=== PATIENT | female | born 1950 | race Caucasian/White ===

== ENCOUNTER 2016-05-22 08:19 | Outpatient (CLI) | payer MEDICARE, OTHER | END 2016-05-22 23:59 | LOC: LAB.WCP 08:19 | PROVIDERS: ATTEND Physician Assistant Medical | DX: E11.9 Type 2 diabetes mellitus without complications (principal) | CPT/HCPCS: 36415; 80053; 80061; 83036 ==

== ENCOUNTER 2016-07-29 08:24 | Outpatient (CLI) | payer MEDICARE, OTHER | END 2016-07-29 08:25 | disposition home or self-care (01) | LOC: LAB.R 08:24 | PROVIDERS: ATTEND Family Medicine | DX: N39.0 Urinary tract infection, site not specified (principal) | CPT/HCPCS: 87077; 87086 ==

== ENCOUNTER 2016-11-14 08:54 | Outpatient (CLI) | payer MEDICARE, OTHER ==
--- NOTE | 2016-11-14 11:52 | CT Report ---
CT CHEST FOR LUNG CANCER SCREENIN11/14/2016 CLINICAL INDICATION: A 66-year-old with 60-pack year history of smoking, current smoker, for lung ca ncer screening. TECHNIQUE: Axial CT images of the chest were obtained without intravenous contrast, using low-dose s creening technique. No previous CT is available for comparison. FINDINGS: The heart and great vessels demonstrate atherosclerotic calcification. Extensive coronary calcifications are present. No hilar or mediastinal lymphadenopathy is present. The lungs demonstr ate mild emphysema. No pulmonary nodule or mass lesion is seen. No effusion or pneumothorax is pres ent. Osseous structures demonstrate degenerative changes. Limited evaluation of upper abdominal str uctures demonstrates normal adrenal glands. IMPRESSION: EMPHYSEMA. EXTENSIVE CORONARY ARTERY CALCIFICATIONS. NO SUSPICIOUS PULMONARY NODULE OR MASS LESION. RECOMMENDATION: Continue annual screening with low-dose chest CT in 12 months. Lung-RADS category 1, negative. In accordance with CT protocol optimization, one or more of the following dose reduction techniques w ere utilized for this exam: automated exposure control, adjustment of mA and/or KV based on patient size, or use of iterative reconstructive technique. JOB #: [id number] EXT JOB #:[id number]
== END 2016-11-14 08:55 | disposition home or self-care (01) ==
LOC: DI 08:54
PROVIDERS: ATTEND Physician Assistant Medical
DX: Z12.2 Encounter for screening for malignant neoplasm of respiratory organs (principal); F17.210 Nicotine dependence, cigarettes, uncomplicated; J43.9 Emphysema, unspecified

== ENCOUNTER → 2016-11-29 | Outpatient (CLI) | payer MEDICARE, OTHER | LOC: LAB.R 17:20 | PROVIDERS: ATTEND Physician Assistant Medical | DX: L03.011 Cellulitis of right finger (principal) | CPT/HCPCS: 87070; 87205 ==

== ENCOUNTER 2016-12-05 16:58 | Outpatient (CLI) | payer MEDICARE, OTHER | END 2016-12-05 16:59 | disposition home or self-care (01) | LOC: LAB.R 16:58 | PROVIDERS: ATTEND Physician Assistant Medical | DX: L03.011 Cellulitis of right finger (principal) | CPT/HCPCS: 87640 ==

== ENCOUNTER 2017-03-20 14:35 | Outpatient (CLI) | payer MEDICARE, OTHER ==
[2017-03-20 19:15] LABS: CALCIUM 9.2 mg/dL (8.5-10.3); CREATININE 0.6 mg/dL (0.4-1.0)
[2017-03-20 20:02] LABS: HB2 TOTAL 17.1 g/dL; HEMOGLOBIN A1C 0.87 g/dL; HEMOGLOBIN A1C % 6.8 % (4.6-6.2)
== END 2017-03-20 14:36 ==
LOC: LAB.WCP 14:35
PROVIDERS: ATTEND Physician Assistant Medical
DX: E11.9 Type 2 diabetes mellitus without complications (principal)
CPT/HCPCS: 36415; 80048; 82043; 83036

== ENCOUNTER 2017-04-01 14:32 | Outpatient (CLI) | payer MEDICARE, OTHER | END 2017-04-01 14:33 | LOC: LAB.WCP 14:32 | PROVIDERS: ATTEND Physician Assistant Medical | DX: E11.9 Type 2 diabetes mellitus without complications (principal) | CPT/HCPCS: 82043 ==

== ENCOUNTER 2017-07-24 08:00 | Outpatient (CLI) | payer MEDICARE, OTHER ==
[2017-07-24 19:30] LABS: ALBUMIN 4.2 g/dL (3.2-5.5); ALBUMIN/GLOBULIN RATIO 1.6 (1.0-2.2); ALKALINE PHOSPHATASE 42 IU/L (42-121); ALT ALANINE AMINOTRANSFERASE 35 IU/L (10-60); AST ASPARTATE AMINOTRANSFERASE 29 IU/L (10-42); BILIRUBIN,TOTAL 0.5 mg/dL (0.2-1.0); BUN - BLOOD UREA NITROGEN 13 mg/dL (6-20); CALCIUM 9.4 mg/dL (8.5-10.3); CARBON DIOXIDE - CO2 26 mmol/L (21-32); CHLORIDE 102 mmol/L (101-111); CHOL/HDL RATIO 4.3 (<4.4); CHOLESTEROL 142 mg/dL; CREATININE 0.6 mg/dL (0.4-1.0); GFR - MDRD 99 (>89); GLUCOSE 210 mg/dL (70-100); HDL CHOLESTEROL 33 mg/dL; SODIUM 137 mmol/L (135-145); TOTAL PROTEIN 6.8 g/dL (6.7-8.2)
[2017-07-24 20:23] LABS: HB2 TOTAL 18.5 g/dL; HEMOGLOBIN A1C 0.99 g/dL; LDL CHOLESTEROL,DIRECT 63 mg/dL; LDLD/HDL RATIO 1.9 (<4.4)
== END 2017-07-24 08:01 ==
LOC: LAB.WCP 08:00
PROVIDERS: ATTEND Physician Assistant Medical
DX: E11.9 Type 2 diabetes mellitus without complications (principal)
CPT/HCPCS: 36415; 80053; 80061; 83036; 83721

== ENCOUNTER 2017-10-29 14:45 | Outpatient (CLI) | payer MEDICARE, OTHER ==
[2017-10-29 19:03] LABS: HEMOGLOBIN A1C 1.03 g/dL; HEMOGLOBIN A1C % 7.4 % (4.6-6.2)
[2017-10-29 19:06] LABS: CALCIUM 9.3 mg/dL (8.5-10.3); CREATININE 0.6 mg/dL (0.4-1.0)
== END 2017-10-29 14:46 ==
LOC: LAB.WCP 14:45
PROVIDERS: ATTEND Physician Assistant Medical
DX: E11.9 Type 2 diabetes mellitus without complications (principal); R25.1 Tremor, unspecified
CPT/HCPCS: 36415; 80048; 82607; 83036

== ENCOUNTER 2018-04-16 08:00 | Outpatient (CLI) | payer MEDICARE, OTHER ==
[2018-04-16 19:09] LABS: ALBUMIN 4.2 g/dL (3.2-5.5); ALBUMIN/GLOBULIN RATIO 1.8 (1.0-2.2); ALKALINE PHOSPHATASE 45 IU/L (42-121); ALT ALANINE AMINOTRANSFERASE 22 IU/L (10-60); AST ASPARTATE AMINOTRANSFERASE 20 IU/L (10-42); BILIRUBIN,TOTAL 0.7 mg/dL (0.2-1.0); BUN - BLOOD UREA NITROGEN 14 mg/dL (6-20); CALCIUM 9.6 mg/dL (8.5-10.3); CARBON DIOXIDE - CO2 25 mmol/L (21-32); CHLORIDE 105 mmol/L (101-111); CHOL/HDL RATIO 4.4 (<4.4); CHOLESTEROL 153 mg/dL; CREATININE 0.4 mg/dL (0.4-1.0); GFR - MDRD 158 (>89); GLUCOSE 192 mg/dL (70-100); HDL CHOLESTEROL 35 mg/dL; LDL CHOLESTEROL,CALCULATED 47 mg/dL; LDL/HDL RATIO 1.3 (<4.4); SODIUM 139 mmol/L (135-145); TOTAL PROTEIN 6.6 g/dL (6.7-8.2); VLDL CHOLESTEROL 71 mg/dL
[2018-04-16 19:55] LABS: HB2 TOTAL 18.9 g/dL; HEMOGLOBIN A1C 0.92 g/dL; HEMOGLOBIN A1C % 6.6 % (4.6-6.2)
== END 2018-04-16 23:59 | disposition home or self-care (01) ==
LOC: LAB.WCP 08:00
PROVIDERS: ATTEND Physician Assistant Medical
DX: E11.9 Type 2 diabetes mellitus without complications (principal)
CPT/HCPCS: 36415; 80053; 80061; 83036; 83721

== ENCOUNTER 2018-06-25 14:36 | Outpatient (CLI) | payer MEDICARE, OTHER ==
--- NOTE | 2018-06-30 15:26 | Mammography Report ---
Reason: SCREENING MAMMO Procedure Date: 06/25/2018 Accession Number: [id number] / [id number] Procedure: MGN - Screening Mammo Dig Bilat CPT Code: FULL RESULT: EXAM: Screening Mammo Dig Bilat DATE: 06/25/2018 3:05 PM CLINICAL HISTORY: Screening examination. TECHNIQUE: (B) - Bilateral CC and MLO views were obtained. COMPARISON: None PARENCHYMAL PATTERN: (A) - The breasts demonstrate scattered fibroglandular densities bilaterally. FINDINGS: Scattered benign punctate microcalcifications. There are no suspicious masses, pleomorphic calcifications, or areas of distortion. IMPRESSION: Negative examination. BI-RADS category 1. RECOMMENDATION: (ANNUAL) - Recommend routine annual screening mammography. BI-RADS CATEGORY: (1) - Negative. STANDARD QUALIFYING STATEMENTS: 1. This examination was reviewed with the aid of Computer-Aided Detection (CAD). 2. A negative or benign imaging report should not preclude biopsy if clinically suspicious findings are present. 3. Dense breasts may obscure an underlying neoplasm. 4. This examination was not reviewed with the aid of 3D breast imaging (tomosynthesis).
== END 2018-06-25 14:37 | disposition home or self-care (01) ==
LOC: DI.N 14:36
DX: Z12.31 Encounter for screening mammogram for malignant neoplasm of breast (principal)
CPT/HCPCS: 77067

== ENCOUNTER 2018-07-20 14:50 | Outpatient (CLI) | payer MEDICARE, OTHER ==
--- NOTE | 2018-07-20 15:36 | XRAY Report ---
Reason: TROCHANTERIC BURSITIS,RIGHT Procedure Date: 07/20/2018 Accession Number: [id number] / [id number] Procedure: WCP - Hip w/Pelvis 2-3V RT CPT Code: FULL RESULT: EXAM: RIGHT HIP RADIOGRAPHY EXAM DATE: 07/20/2018 03:03 PM. CLINICAL HISTORY: Chronic pain. No known injury. COMPARISON: 11/04/2013 2:46 PM. TECHNIQUE: 2 views. FINDINGS: Bones: Normal. No fractures or bone lesion. Joints: Relatively symmetric joint space narrowing of both hip joints. No subluxation of the right hip. Soft Tissues: Vascular calcifications are noted. 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 RADIA
== END 2018-07-20 14:51 | disposition home or self-care (01) ==
LOC: DI.WCP 14:50
PROVIDERS: ATTEND Physician Assistant Medical
DX: M16.11 Unilateral primary osteoarthritis, right hip (principal)

== ENCOUNTER 2018-10-12 14:07 | Outpatient (CLI) | payer MEDICARE, OTHER ==
[2018-10-12 18:42] LABS: CALCIUM 9.3 mg/dL (8.5-10.3); CREATININE 0.5 mg/dL (0.4-1.0); HB2 TOTAL 17.5 g/dL; HEMOGLOBIN A1C 1.08 g/dL; HEMOGLOBIN A1C % 7.8 % (4.6-6.2)
== END 2018-10-12 14:08 | disposition home or self-care (01) ==
LOC: LAB.WCP 14:07
PROVIDERS: ATTEND Physician Assistant Medical
DX: E11.9 Type 2 diabetes mellitus without complications (principal)
CPT/HCPCS: 36415; 80048; 83036

== ENCOUNTER 2018-10-19 14:17 | Outpatient (CLI) | payer MEDICARE, OTHER ==
--- NOTE | 2018-10-20 09:37 | Ultrasound Report ---
Reason: LEG PAIN, LEFT Procedure Date: 10/19/2018 Accession Number: [id number] / [id number] Procedure: US - Duplex Ext Veins Left CPT Code: FULL RESULT: EXAM: LEFT LOWER EXTREMITY VENOUS ULTRASOUND EXAM DATE: 10/19/2018 03:32 PM. CLINICAL HISTORY: LEG PAIN, LEFT. COMPARISON: None. TECHNIQUE: Real-time sonographic vascular imaging was performed by the membership administrator through the lower extremity utilizing both color-flow and Doppler spectral analysis. Multiple circulation representative static images were saved for review. FINDINGS: Common Femoral Vein (CFV): Normal. CFV-GSV Junction: Normal. Profunda Femoral Vein (PFV): Normal. Femoral Vein (FV) Prox: Normal. Femoral Vein (FV) Mid: Normal. Femoral Vein (FV) Dist: Normal. Popliteal Vein: Normal. Posterior Tibial Veins: Suboptimal visualization, no filling defect seen. Peroneal Veins: Suboptimal visualization, no filling defect seen. Other: None. IMPRESSION: No evidence for deep venous thrombosis. RADIA
== END 2018-10-19 14:18 | disposition home or self-care (01) ==
LOC: DI 14:17
PROVIDERS: ATTEND Physician Assistant Medical
DX: M79.605 Pain in left leg (principal)

== ENCOUNTER 2018-10-28 15:04 | Outpatient (CLI) | payer MEDICARE, OTHER ==
--- NOTE | 2018-10-30 10:17 | Ultrasound Report ---
Reason: NECK PAIN, CHRONIC, DYSLIPIDEMIA, HTN Procedure Date: 10/28/2018 Accession Number: [id number] / [id number] Procedure: US - Carotid Doppler Complete CPT Code: FULL RESULT: EXAM: BILATERAL CAROTID AND VERTEBRAL ARTERY DUPLEX DOPPLER ULTRASOUND: EXAM DATE: 10/28/2018 04:11 PM CLINICAL HISTORY: Neck pain, chronic, dyslipidemia, hypertension. COMPARISON: 10/28/2018 4:13 PM. TECHNIQUE: Grayscale imaging, color Doppler, and duplex spectral Doppler were used to evaluate the carotid and vertebral arteries bilaterally. Static images were obtained. FINDINGS: Mild atheromatous plaques are present in the right carotid bulb extending into the internal carotid artery. However, no hemodynamically significant stenoses are noted. Mild atheromatous plaques are present in the left carotid bulb extending into the internal carotid artery. However, no hemodynamically significant stenoses are noted. Visualized portions of the neck soft tissues are grossly unremarkable. Normal antegrade flow is present in bilateral vertebral arteries. VELOCITIES (cm/sec): Right CCA mid: PSV 75 cm/sec CCA dist: PSV 72 cm/sec ICA prox: PSV 115 cm/sec, EDV 31 cm/sec ICA mid: PSV 107 cm/sec, EDV 32 cm/sec ICA dist: PSV 71 cm/sec, EDV 18 cm/sec ECA: PSV 188 cm/sec Vert: PSV 41 cm/sec ICA/CCA: 1.5 Left CCA mid: PSV 72 cm/sec CCA dist: PSV 81 cm/sec ICA prox: PSV 109 cm/sec, EDV 25 cm/sec ICA mid: PSV 89 cm/sec, EDV 27 cm/sec ICA dist: PSV 81 cm/sec, EDV 23 cm/sec ECA: PSV 356 cm/sec Vert: PSV 67 cm/sec ICA/CCA: 1.3 ICA diameter stenosis: Right: <50% by velocity and <70% by NASCET criteria. Left: <50% by velocity and <70% by NASCET criteria. IMPRESSION: 1. Mild bilateral carotid artery plaquing. 2. In the right carotid artery there are no elevated carotid artery velocities to suggest hemodynamically significant stenosis. 3. In the left carotid artery there are no elevated carotid artery velocities to suggest hemodynamically significant stenosis. 4. Normal antegrade flow is present in bilateral vertebral arteries. General Recommendations: Stenosis =50% ICA - Follow-up ultrasound 6-12 months Stenosis <50% ICA - High Risk Patient with plaque - Follow-up ultrasound 1-2 years Normal Study but High Risk Patient - Follow-up ultrasound 3-5 years Management recommendations and diagnostic criteria are based on current IAC endorsed standards in Carotid Artery Stenosis: Grayscale and Doppler Ultrasound Diagnosis. Validated velocity measurements with angiographic measurements and velocity criteria are extrapolated from diameter data as defined by the Society of Radiologists in Ultrasound Consensus Conference Radiology 2003; 229;340-346. RADIA
== END 2018-10-28 15:05 | disposition home or self-care (01) ==
LOC: DI 15:04
PROVIDERS: ATTEND Physician Assistant Medical
DX: M54.2 Cervicalgia (principal); E78.5 Hyperlipidemia, unspecified; I10 Essential (primary) hypertension
CPT/HCPCS: 93880

== ENCOUNTER 2019-01-10 14:27 | Outpatient (CLI) | payer MEDICARE, OTHER ==
--- NOTE | 2019-01-11 14:39 | Ultrasound Report ---
Reason: MENORRHAGIA POSTMENOPAUSAL Procedure Date: 01/10/2019 Accession Number: [id number] / [id number] Procedure: US - Pelvic w/Transvaginal CPT Code: FULL RESULT: EXAM: PELVIC ULTRASOUND EXAM DATE: 01/10/2019 03:25 PM. CLINICAL HISTORY: MENORRHAGIA POSTMENOPAUSAL. COMPARISON: 10/28/2018 4:13 PM. TECHNIQUE: Realtime transabdominal pelvic scan performed to identify the uterus and adnexa and as an overview of other pelvic structures, followed by transvaginal scan to provide greater detail of the uterus and adnexa, with static image documentation. FINDINGS: Uterus: 6.7 x 2.3 x 3.5 cm, volume 28 cc. Anteverted position. Normal overall size and echotexture. Masses: 5 x 5 x 8 mm echogenic intramural focus, possibly a hyperechoic fibroid. Endometrium: 2 mm. Normal. Cervix: Unremarkable. Right Ovary: Not seen. No adnexal masses. Left Ovary: 1.9 x 1.3 x 2 cm, volume 2.5 cc. Normal echotexture and blood flow. Free Fluid: None. Other: None. IMPRESSION: Normal endometrial echo thickness in a postmenopausal female. Possible sub-centimeter echogenic intramural fibroid.Otherwise negative pelvic ultrasound. RADIA
== END 2019-01-10 14:28 | disposition home or self-care (01) ==
LOC: DI 14:27
PROVIDERS: ATTEND Physician Assistant Medical
DX: N95.0 Postmenopausal bleeding (principal)
CPT/HCPCS: 76830; 76856

== ENCOUNTER 2019-01-25 07:00 | Outpatient (CLI) | payer MEDICARE, OTHER ==
[2019-01-25 18:37] LABS: ALBUMIN 4.5 g/dL (3.2-5.5); ALBUMIN/GLOBULIN RATIO 1.6 (1.0-2.2); ALKALINE PHOSPHATASE 42 IU/L (42-121); ALT ALANINE AMINOTRANSFERASE 25 IU/L (10-60); AST ASPARTATE AMINOTRANSFERASE 23 IU/L (10-42); BILIRUBIN,TOTAL 0.5 mg/dL (0.2-1.0); BUN - BLOOD UREA NITROGEN 17 mg/dL (6-20); CALCIUM 9.3 mg/dL (8.5-10.3); CARBON DIOXIDE - CO2 26 mmol/L (21-32); CHLORIDE 101 mmol/L (101-111); CHOL/HDL RATIO 4.4 (<4.4); CHOLESTEROL 155 mg/dL; CREATININE 0.5 mg/dL (0.4-1.0); GFR - MDRD 122 (>89); GLUCOSE 194 mg/dL (70-100); HDL CHOLESTEROL 35 mg/dL; LDL CHOLESTEROL,CALCULATED 54 mg/dL; LDL/HDL RATIO 1.5 (<4.4); SODIUM 139 mmol/L (135-145); TOTAL PROTEIN 7.3 g/dL (6.7-8.2); VLDL CHOLESTEROL 66 mg/dL
[2019-01-25 18:44] LABS: HB2 TOTAL 16.6 g/dL; HEMOGLOBIN A1C 0.95 g/dL; HEMOGLOBIN A1C % 7.4 % (4.6-6.2)
== END 2019-01-25 23:59 | disposition home or self-care (01) ==
LOC: LAB.WCP 07:00
PROVIDERS: ATTEND Physician Assistant Medical
DX: E11.9 Type 2 diabetes mellitus without complications (principal)
CPT/HCPCS: 36415; 80053; 80061; 83036; 83721

== ENCOUNTER 2019-02-01 13:45 | Outpatient (CLI) | payer MEDICARE, OTHER ==
[2019-02-01 14:18] LABS: BASOPHILS # (AUTO) 0.1 10^3/uL (0.0-0.1); BASOPHILS % (AUTO) 0.8 %; EOSINOPHILS # (AUTO) 0.2 10^3/uL (0.0-0.7); EOSINOPHILS % (AUTO) 1.8 %; LYMPHOCYTES # (AUTO) 2.9 10^3/uL (1.5-3.5); LYMPHOCYTES % (AUTO) 34.8 %; MEAN CORPUSCULAR HEMOGLOBIN 32.1 pg (27.0-31.0); MEAN CORPUSCULAR HGB CONC 33.7 g/dL (32.0-36.0); MEAN CORPUSCULAR VOLUME 95.4 fL (81.0-99.0); MEAN PLATELET VOLUME 10.1 fL (7.9-10.8); MONOCYTES # (AUTO) 0.8 10^3/uL (0.0-1.0); MONOCYTES % (AUTO) 9.1 %; NEUTROPHILS # (AUTO) 4.5 10^3/uL (1.5-6.6); NEUTROPHILS % (AUTO) 53.1 %; PLT - PLATELET COUNT 160 10^3/uL (130-450); RED CELL DISTRIBUTION WIDTH 14.3 % (12.0-15.0); WHITE BLOOD COUNT 8.4 x10^3/uL (4.8-10.8)
[2019-02-01 14:32] LABS: ALBUMIN 4.6 g/dL (3.2-5.5); ALBUMIN/GLOBULIN RATIO 1.4 (1.0-2.2); BILIRUBIN,TOTAL 0.7 mg/dL (0.2-1.0); CALCIUM 9.6 mg/dL (8.5-10.3); CREATININE 0.6 mg/dL (0.4-1.0); TOTAL PROTEIN 7.8 g/dL (6.7-8.2)
== END 2019-02-01 13:46 | disposition home or self-care (01) ==
LOC: LAB 13:45
PROVIDERS: ATTEND Obstetrics & Gynecology
DX: Z01.818 Encounter for other preprocedural examination (principal); N95.0 Postmenopausal bleeding; E11.8 Type 2 diabetes mellitus with unspecified complications
CPT/HCPCS: 36415; 80053; 85025; 93005

== ENCOUNTER 2019-04-21 14:48 | Outpatient (CLI) | payer MEDICARE, OTHER ==
[2019-04-21 19:37] LABS: HB2 TOTAL 17.3 g/dL; HEMOGLOBIN A1C % 7.4 % (4.6-6.2)
[2019-04-21 19:46] LABS: CALCIUM 9.3 mg/dL (8.5-10.3); CREATININE 0.6 mg/dL (0.4-1.0)
== END 2019-04-21 23:59 | disposition home or self-care (01) ==
LOC: LAB.WCP 14:48
PROVIDERS: ATTEND Physician Assistant Medical
DX: E11.9 Type 2 diabetes mellitus without complications (principal)
CPT/HCPCS: 36415; 80048; 83036

== ENCOUNTER 2019-05-24 13:54 | Outpatient (CLI) | payer MEDICARE, OTHER ==
--- NOTE | 2019-05-26 11:38 | CT Report ---
Reason: TOBACCO USER Procedure Date: 05/24/2019 Accession Number: [id number] / [id number] Procedure: CT - Low Dose Lung Cancer Screen CPT Code: Final Report FULL RESULT: EXAM CT LUNG SCREEN EXAM DATE: 05/24/2019 02:07 PM. HISTORY: 68-year-old patient with greater than 34-[id number]-tgid smoking history. Currently smoking: Yes. COMPARISON: CHEST SCREEN LOW DOSE W/O 11/14/2016 9:24 AM. TECHNIQUE: CT examination of the entire thorax without contrast was performed using low-dose technique. Thin section coronal, axial, sagittal and MIP axial images were obtained. In accordance with CT protocol optimization, one or more of the following dose reduction techniques were utilized for this exam: automated exposure control, adjustment of mA and/or KV based on patient size, or use of iterative reconstructive technique. FINDINGS: Nodules: Right upper lobe: None. Right middle lobe: 3 mm nodule image 74 series 4, stable. 3 mm nodule on image 75, stable. Right lower lobe: Sub-2 mm nodule image 86 stable,. Left upper lobe: Sub-2 mm nodularity on image 47, stable. Left lower lobe: None. Emphysema: Minimal. Pleura: Unremarkable. Aorta: Moderately atherosclerotic. Mediastinum: Unremarkable. Coronary calcifications: Moderate three-vessel. Other pulmonary findings: None. Other extrapulmonary findings: None. IMPRESSION: Lung-RADS ASSESSMENT CATEGORY: 2 - benign appearance or behavior. Probability of malignancy: Less than 1%. RECOMMENDATION: Continue annual low-dose chest CT screening. RADIA
== END 2019-05-24 13:55 | disposition home or self-care (01) ==
LOC: DI 13:54
PROVIDERS: ATTEND Physician Assistant Medical
DX: Z12.2 Encounter for screening for malignant neoplasm of respiratory organs (principal); F17.210 Nicotine dependence, cigarettes, uncomplicated

== ENCOUNTER 2019-08-20 08:00 | Outpatient (CLI) | payer MEDICARE, OTHER ==
[2019-08-20 18:48] LABS: HEMOGLOBIN A1C 1.15 g/dL
[2019-08-20 19:09] LABS: ALBUMIN 4.3 g/dL (3.2-5.5); ALBUMIN/GLOBULIN RATIO 1.5 (1.0-2.2); ALKALINE PHOSPHATASE 46 IU/L (42-121); ALT ALANINE AMINOTRANSFERASE 31 IU/L (10-60); AST ASPARTATE AMINOTRANSFERASE 20 IU/L (10-42); BILIRUBIN,TOTAL 0.8 mg/dL (0.2-1.0); BUN - BLOOD UREA NITROGEN 20 mg/dL (6-20); CALCIUM 9.4 mg/dL (8.5-10.3); CARBON DIOXIDE - CO2 26 mmol/L (21-32); CHLORIDE 100 mmol/L (101-111); CHOL/HDL RATIO 5.8 (<4.4); CHOLESTEROL 190 mg/dL; CREATININE 0.6 mg/dL (0.4-1.0); GLUCOSE 209 mg/dL (70-100); HDL CHOLESTEROL 33 mg/dL; SODIUM 139 mmol/L (135-145); TOTAL PROTEIN 7.1 g/dL (6.7-8.2)
[2019-08-20 19:32] LABS: LDL CHOLESTEROL,DIRECT 76 mg/dL; LDLD/HDL RATIO 2.3 (<4.4)
[2019-08-20 20:01] LABS: HB2 TOTAL 17.9 g/dL
== END 2019-08-20 08:01 | disposition home or self-care (01) ==
LOC: LAB.WCP 08:00
PROVIDERS: ATTEND Physician Assistant Medical
DX: E11.9 Type 2 diabetes mellitus without complications (principal)
CPT/HCPCS: 36415; 80053; 80061; 83036; 83721

== ENCOUNTER 2019-10-29 13:52 | Outpatient (CLI) | payer MEDICARE, OTHER ==
--- NOTE | 2019-11-01 11:41 | Ultrasound Report ---
LIMITED ULTRASOUND OF RIGHT BREAST: 10/29/2019 CLINICAL: Palpable right breast lump. Comparison is made to exams dated: 10/29/2019 mammogram, 06/25/2018 mammogram, and 05/09/2014 mammogram - . Color flow and real-time ultrasound of the right breast upper outer quadrant were performed. Bain sc cali images of the real-time examination were reviewed. No significant abnormalities were seen sonographically in the right breast in the region of suspected palpable abnormality. IMPRESSION: NEGATIVE There is no sonographic evidence of malignancy. A 1 year screening mammogram is recommended. Exam findings conveyed to the patient. Patient is advised to monitor for significant change. This exam was interpreted at Station ID: [id number]. Electronically Signed By: Manoj Pace M.D. slc/:10/29/2019 15:56:05 Ultrasound BI-RADS: 1 Negative BI-RADS CATEGORY: (1) - 1 RECOMMENDATION: (ANNUAL) - Recommend routine annual screening mammography. [id number] 1 year screening LATERALITY: (B)
--- NOTE | 2019-11-01 11:41 | Mammography Report ---
BILATERAL DIGITAL DIAGNOSTIC MAMMOGRAM 3D/2D: 10/29/2019 CLINICAL: Palpable right breast lump. 12 O'Clock. Comparison is made to exams dated: 06/25/2018 mammogram and 05/09/2014 mammogram - [facility]. The tissue of both breasts is predominantly fatty. No significant masses, calcifications, or other findings are seen in either breast. IMPRESSION: INCOMPLETE: NEEDS ADDITIONAL IMAGING EVALUATION No mammographic evidence of malignancy. A targeted ultrasound of the suspected palpable abnormality in the right breast is recommended and wi ll immediately follow. This exam was interpreted at Station ID: [id number]. NOTE: For mammograms, a report in lay terms will be sent to the patient. Approximately 15% of breast malignancies will not be visualized mammographically. In the management of a palpable breast mass, a negative mammogram must not discourage biopsy of a clinically suspicious lesion. Electronically Signed By: Manoj Pace M.D. slc/:10/29/2019 15:54:08 ACR BI-RADS Category 0: Incomplete 3340F PARENCHYMAL PATTERN: (F) - The breast(s) demonstrate(s) diffuse fatty replacement. BI-RADS CATEGORY: (0) - 0 Ultrasound [id number] Immediate follow-up LATERALITY: (B)
== END 2019-10-29 13:53 | disposition home or self-care (01) ==
LOC: DI 13:52
PROVIDERS: ATTEND Physician Assistant Medical
DX: N63.11 Unspecified lump in the right breast, upper outer quadrant (principal)
CPT/HCPCS: 76642; 77066

== ENCOUNTER 2019-10-29 13:54 | Outpatient (CLI) | payer MEDICARE, OTHER ==
--- NOTE | 2019-10-30 06:31 | DEXA Report ---
PROCEDURE: Dexa Spine and/or Hip INDICATIONS: POSTMENOPAUSAL TECHNIQUE: Dual energy x-ray absorptiometry (DXA) was performed on a [employer] System. Regions measur ed are the AP Spine, femoral neck, and if needed forearm. COMPARISON: None. FINDINGS: Lumbar Spine: Bone Mineral Density 1.037 g/cm/cm,T score -1.1, borderline osteopenia Left Hip: Bone Mineral Density 0.895 g/cm/cm,T score -0.9, normal Left Femoral Neck: Bone Mineral Density 0.822 g/cm/cm, T score -1.6, moderate osteopenia. (T score greater or equal to -1.0: NORMAL) (T score from -1.1 to -2.4: OSTEOPENIA) (T score less than or equal to -2.5 to: OSTEOPOROSIS) Impression: Moderate osteopenia of the left femoral neck. Patients with diagnosis of osteoporosis or osteopenia should have regular bone mineral density assess ment. For those eligible for Medicare, routine testing is allowed once every 2 years. Testing frequ ency can be increased for patients who have rapidly progressing disease or for those who are receivin g medical therapy to restore bone mass. Reviewed by: Maribel Ibarra MD on 10/29/2019 5:09 PM PDT Approved by: Maribel Iabrra MD on 10/29/2019 5:09 PM PDT Station ID: [id number]
== END 2019-10-29 13:55 | disposition home or self-care (01) ==
LOC: DI 13:54
PROVIDERS: ATTEND Physician Assistant Medical
DX: M85.89 Other specified disorders of bone density and structure, multiple sites (principal); Z78.0 Asymptomatic menopausal state
CPT/HCPCS: 77080

== ENCOUNTER 2019-12-15 08:00 | Outpatient (CLI) | payer MEDICARE, OTHER ==
[2019-12-15 19:02] LABS: ALBUMIN 4.4 g/dL (3.2-5.5); ALBUMIN/GLOBULIN RATIO 1.8 (1.0-2.2); ALKALINE PHOSPHATASE 55 IU/L (42-121); ALT ALANINE AMINOTRANSFERASE 23 IU/L (10-60); AST ASPARTATE AMINOTRANSFERASE 17 IU/L (10-42); BILIRUBIN,TOTAL 0.5 mg/dL (0.2-1.0); BUN - BLOOD UREA NITROGEN 19 mg/dL (6-20); CALCIUM 9.3 mg/dL (8.5-10.3); CARBON DIOXIDE - CO2 24 mmol/L (21-32); CHLORIDE 104 mmol/L (101-111); CHOL/HDL RATIO 5.2 (<4.4); CHOLESTEROL 197 mg/dL; CREATININE 0.6 mg/dL (0.4-1.0); GLUCOSE 216 mg/dL (70-100); HDL CHOLESTEROL 38 mg/dL; SODIUM 138 mmol/L (135-145); TOTAL PROTEIN 6.9 g/dL (6.7-8.2)
[2019-12-15 19:21] LABS: LDL CHOLESTEROL,DIRECT 101 mg/dL; LDLD/HDL RATIO 2.7 (<4.4)
[2019-12-15 20:05] LABS: HEMOGLOBIN A1c% 8.1 % (4.27-6.07)
== END 2019-12-15 23:59 | disposition home or self-care (01) ==
LOC: LAB.WCP 08:00
PROVIDERS: ATTEND Physician Assistant Medical
DX: E11.9 Type 2 diabetes mellitus without complications (principal)
CPT/HCPCS: 36415; 80053; 80061; 83036; 83721

== ENCOUNTER 2020-04-19 14:50 | Outpatient (CLI) | payer MEDICARE, OTHER ==
--- NOTE | 2020-04-19 17:04 | XRAY Report ---
PROCEDURE: Knee 3 View LT INDICATIONS: L LEG PX TECHNIQUE: 3 views of the left knee(s) were acquired. COMPARISON: None. FINDINGS: Bones: No fractures or dislocations. No suspicious bony lesions. Mild tricompartmental periareolar articular osteophyte formation. Soft tissues: No joint effusion. No suspicious soft tissue calcifications. IMPRESSION: Osteoarthritis. No acute fracture. No osseous lesion. If symptoms and/or clinical suspic ion for pathology continue, further assessment with repeat plain films, or advanced imaging (e.g., CT , MRI, or bone scan) is recommended for further assessment. Reviewed by: Abhilash Dejesus MD on 04/19/2020 5:03 PM PST Approved by: Abhilash Dejesus MD on 04/19/2020 5:03 PM PST Station ID: [id number]
--- NOTE | 2020-04-19 17:31 | XRAY Report ---
PROCEDURE: Thoracic Spine 3 View INDICATIONS: THORACIC BACK PX TECHNIQUE: 3 views of the thoracic spine were acquired. COMPARISON: None. FINDINGS: Bones: No fractures or dislocations. Degenerative endplate changes throughout mid to lower thoracic spine is seen. Moderate rightward scoliosis of visualized portion of lumbar spine is noted. No suspi cious bony lesions. 12 pairs of ribs are noted, and appear intact where visualized. Soft tissues: No paravertebral stripe thickening. 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 No acute compression fracture or sp ondylolisthesis. Scoliosis as above. No suspicious bony lesion. Reviewed by: Peng Reynolds MD on 04/19/2020 4:30 PM [facility] Approved by: Peng Reynolds MD on 04/19/2020 4:30 PM [facility] Station ID: [id number]
== END 2020-04-19 14:51 | disposition home or self-care (01) ==
LOC: DI.N 14:50
PROVIDERS: ATTEND Physician Assistant Medical
DX: M51.34 Other intervertebral disc degeneration, thoracic region (principal); M41.84 Other forms of scoliosis, thoracic region; M17.12 Unilateral primary osteoarthritis, left knee

== ENCOUNTER 2020-05-02 13:52 | Outpatient (CLI) | payer MEDICARE, OTHER ==
[2020-05-02 19:16] LABS: ALBUMIN 4.3 g/dL (3.2-5.5); ALBUMIN/GLOBULIN RATIO 1.5 (1.0-2.2); ALKALINE PHOSPHATASE 52 IU/L (42-121); ALT ALANINE AMINOTRANSFERASE 21 IU/L (10-60); AST ASPARTATE AMINOTRANSFERASE 14 IU/L (10-42); BILIRUBIN,TOTAL 0.9 mg/dL (0.2-1.0); BUN - BLOOD UREA NITROGEN 18 mg/dL (6-20); CALCIUM 9.2 mg/dL (8.5-10.3); CARBON DIOXIDE - CO2 26 mmol/L (21-32); CHLORIDE 100 mmol/L (101-111); CHOL/HDL RATIO 7.5 (<4.4); CHOLESTEROL 234 mg/dL; CREATININE 0.6 mg/dL (0.4-1.0); GLUCOSE 185 mg/dL (70-100); HDL CHOLESTEROL 31 mg/dL; TOTAL PROTEIN 7.2 g/dL (6.7-8.2)
[2020-05-02 19:52] LABS: LDL CHOLESTEROL,DIRECT 157 mg/dL; LDLD/HDL RATIO 5.1 (<4.4)
[2020-05-03 12:18] LABS: HEPATITIS C ANTIBODY NON-REACTIVE (NON-REACTIVE)
== END 2020-05-02 13:53 | disposition home or self-care (01) ==
LOC: LAB.N 13:52
PROVIDERS: ATTEND Physician Assistant Medical
DX: Z01.84 Encounter for antibody response examination (principal); E11.9 Type 2 diabetes mellitus without complications
CPT/HCPCS: 36415; 80053; 80061; 82043; 82570; 83036; 83721; 86803

== ENCOUNTER 2020-07-25 14:01 | Outpatient (CLI) | payer MEDICARE, OTHER ==
--- NOTE | 2020-07-25 17:33 | MRI Report ---
PROCEDURE: Knee LT W/O INDICATIONS: L KNEE PAIN TECHNIQUE: Noncontrast sagittal PD fast spin echo and T2 fast spin echo with fat saturation, sagittal 3-D gradie nt sequence with fat saturation; coronal T1 spin echo and PD fast spin echo with fat saturation, and axial PD fast spin echo with fat saturation through the knee. COMPARISON: None. FINDINGS: Image quality: Excellent. Menisci: The medial and lateral menisci demonstrate normal morphology and internal signal. The meni scal root ligaments appear intact. Cruciate ligaments: The anterior and posterior cruciate ligaments appear intact. Medial structures: Low-grade MCL sprain is seen. The posterior oblique ligament, semimembranosus tend on insertions, and oblique popliteal ligament, and meniscocapsular junction appear intact. Visualize d portions of the pes anserinus tendons appear normal. No abnormal bursal fluid. Lateral structures: The lateral collateral ligament, long and short heads of the biceps femoris tend on appear intact. The popliteus tendon appears normal; the popliteofibular ligament appears intact. The posterosuperior and anteroinferior popliteomeniscal fascicles appear intact. The arcuate and fa bellofibular ligaments appear intact, around the lateral inferior geniculate artery. Iliotibial band appears normal. Anterior structures: The quadriceps and patellar tendons appear intact. Patellar alignment is dieudonne l. No femoral trochlear dysplasia or ventral trochlear prominence. No edema in the infrapatellar fa t pad. Bones and cartilage: No bone marrow contusions or fractures. Mild tricompartmental osteoarthritis is seen. Low-grade chondromalacia involving weight-bearing portion of medial femoral condyle is noted. Chondromalacia patella involving apex of patella cartilage is also seen. Joint space: There is small amount of joint fluid, no gross loose body. No Bacon?s cyst. Normal ap pearing synovial plicae are incidentally noted. IMPRESSION: 1. Mild tricompartmental osteoarthritis. Low-grade chondromalacia in medial femoral tibial compartmen t and patellofemoral compartment as above. Small joint effusion. 2. Cruciate ligaments are intact. 3. No evidence of focal meniscal tear. 4. Low-grade MCL sprain. Reviewed by: Peng Reynolds MD on 07/25/2020 5:31 PM PDT Approved by: Peng Reynolds MD on 07/25/2020 5:31 PM PDT Station ID: [id number]
== END 2020-07-25 14:02 | disposition home or self-care (01) ==
LOC: DI 14:01
PROVIDERS: ATTEND Physician Assistant Medical
DX: M17.12 Unilateral primary osteoarthritis, left knee (principal); S83.412A Sprain of medial collateral ligament of left knee, initial encounter

== ENCOUNTER 2020-08-10 14:45 | Outpatient (CLI) | payer MEDICARE, OTHER ==
[2020-08-10 17:57] LABS: BASOPHILS # (AUTO) 0.1 10^3/uL (0.0-0.1); BASOPHILS % (AUTO) 0.7 %; EOSINOPHILS # (AUTO) 0.2 10^3/uL (0.0-0.7); EOSINOPHILS % (AUTO) 2.2 %; HCT - HEMATOCRIT 48.5 % (37.0-47.0); HGB - HEMOGLOBIN 16.2 g/dL (12.0-16.0); LYMPHOCYTES # (AUTO) 2.4 10^3/uL (1.5-3.5); LYMPHOCYTES % (AUTO) 34.9 %; MEAN CORPUSCULAR HEMOGLOBIN 32.1 pg (27.0-31.0); MEAN CORPUSCULAR HGB CONC 33.4 g/dL (32.0-36.0); MEAN PLATELET VOLUME 11.2 fL (7.9-10.8); MONOCYTES # (AUTO) 0.7 10^3/uL (0.0-1.0); MONOCYTES % (AUTO) 10.4 %; NEUTROPHILS # (AUTO) 3.5 10^3/uL (1.5-6.6); NEUTROPHILS % (AUTO) 51.2 %; PLT - PLATELET COUNT 185 10^3/uL (130-450); RED BLOOD COUNT 5.05 10^6/uL (4.20-5.40); RED CELL DISTRIBUTION WIDTH 14.3 % (12.0-15.0); WHITE BLOOD COUNT 6.8 x10^3/uL (4.8-10.8)
[2020-08-10 18:10] LABS: CREATININE,URINE 44.7 mg/dL; MICROALBUMIN,URINE 1.7 mg/dL (0-300.0)
[2020-08-10 18:20] LABS: ALBUMIN 4.3 g/dL (3.2-5.5); ALBUMIN/GLOBULIN RATIO 1.6 (1.0-2.2); ALKALINE PHOSPHATASE 50 IU/L (42-121); ALT ALANINE AMINOTRANSFERASE 26 IU/L (10-60); AST ASPARTATE AMINOTRANSFERASE 19 IU/L (10-42); BILIRUBIN,TOTAL 0.6 mg/dL (0.2-1.0); BUN - BLOOD UREA NITROGEN 20 mg/dL (6-20); CALCIUM 9.2 mg/dL (8.5-10.3); CARBON DIOXIDE - CO2 27 mmol/L (21-32); CHLORIDE 104 mmol/L (101-111); CHOL/HDL RATIO 8.3 (<4.4); CHOLESTEROL 233 mg/dL; CREATININE 0.6 mg/dL (0.4-1.0); GFR - MDRD 99 (>89); GLUCOSE 225 mg/dL (70-100); HDL CHOLESTEROL 28 mg/dL; POTASSIUM 4.1 mmol/L (3.5-5.0); SODIUM 138 mmol/L (135-145); TRIGLYCERIDES 599 mg/dL
[2020-08-10 18:31] LABS: THYROID STIMULATING HORMONE 3.09 uIU/mL (0.34-5.60)
[2020-08-10 18:53] LABS: LDL CHOLESTEROL,DIRECT 136 mg/dL; LDLD/HDL RATIO 4.9 (<4.4)
[2020-08-10 20:40] LABS: ESTIMATED AVERAGE GLUCOSE 163 mg/dL (70-100); HEMOGLOBIN A1c% 7.3 % (4.27-6.07)
== END 2020-08-10 14:46 | disposition home or self-care (01) ==
LOC: LAB.N 14:45
PROVIDERS: ATTEND Physician Assistant Medical
DX: E11.9 Type 2 diabetes mellitus without complications (principal); D75.1 Secondary polycythemia
CPT/HCPCS: 36415; 80053; 80061; 82043; 82570; 83036; 83721; 84443; 85025

== ENCOUNTER 2020-08-24 12:24 | Outpatient (CLI) | payer MEDICARE, OTHER ==
--- NOTE | 2020-09-07 16:32 | CT Report ---
PROCEDURE: Low Dose Lung Cancer Screen INDICATIONS: CURRENT SMOKER TECHNIQUE: Noncontrast low-dose 5 mm thick sections acquired from the pulmonary apices to the posterior costophr enic angles. 7 mm thick coronal and sagittal MIP reformats were then acquired. For radiation dose r eduction, the following was used: automated exposure control, adjustment of mA and/or kV according t o patient size. COMPARISON: None. FINDINGS: Image quality: Excellent. Lungs and pleura: No acute airspace opacity. No nodules or masses. No pneumothorax or pleural effusi on. Mediastinum: Heart size is normal. No pericardial effusion. No mediastinal adenopathy by size crit eria. Thoracic aorta and central pulmonary arteries are normal in size. Esophagus is normal in wendy jasvir. No hiatal hernia. Bones and chest wall: There are multilevel degenerative changes. No suspicious bony lesions. No iveth tebral body compression fractures. No axillary or supraclavicular adenopathy by size criteria. The thyroid is normal in size and there are no incidental findings. Abdomen: Visualized upper abdomen solid organs and bowel loops appear normal in the absence of contr ast. IMPRESSION: 1. No acute or significant abnormality of the chest. 2. No pulmonary nodules or masses. Lung RADS 1. Normal. Recommend continued annual low dose CT screening. Reviewed by: Tom Fall on 08/24/2020 2:14 PM PDT Approved by: Tom Fall on 08/24/2020 2:14 PM PDT Station ID: [id number]
== END 2020-08-24 12:25 | disposition home or self-care (01) ==
LOC: DI 12:24
PROVIDERS: ATTEND Physician Assistant Medical
DX: Z12.2 Encounter for screening for malignant neoplasm of respiratory organs (principal); F17.210 Nicotine dependence, cigarettes, uncomplicated

== ENCOUNTER 2020-09-07 09:06 | Outpatient (CLI) | payer MEDICARE, OTHER ==
[2020-09-07] MEDS ORDERED: REGADENOSON 0.4 MG/5 ML SYRINGE IVP ONE ×2 (10:28→12:16)
[2020-09-07] MEDS ORDERED: AMINOPHYLLINE 500 MG/20 ML VIAL ONE (10:28)
--- NOTE | 2020-09-07 11:31 | CARDIAC PROCEDURE NOTE ---
Stress Test Report Service Date: 09/07/20 Ordering Provider: MADDI Ackerman Indication for Test: Abnormal EKG Significant Medical History: Patient reported several years of throat tightness that occurs with exertion. Cardiac Risk Factors: Diabetes, HTN, postmenopausal status, obesity, hyperlipidemia, smoker, possible family history of early heart disease. Type of Stress Test: Pharmacologic Stress Test with MPI Pharmacologic Agent: Lexiscan Procedure: After signing informed consent, the patient underwent a Lexiscan pharmaceutical stress test with nuclear myocardial perfusion imaging. Resting heart rate: 104 Peak HR: 117 Resting BP: 147/69 Peak BP: 182/88 Lexiscan was infused per protocol. The patient developed 5/10 chest pressure an d her typical throat tightness. She had flushing and was short of breath for approximately 1 minute. Oxygen saturation was 92 to 94% on room air throughout the test. Aminophylline 25 mg IV was given to reverse her chest pain symptoms with good effect. Resting EKG: Sinus tachycardia, rate 104, 1st degree AV block, left atrial enlargement, low voltage EKG, possible old payam-septal AR. EKG at peak: [address] segment depressions in leads I, AVL, II, AVF and V4-V6. Summary: 1) Abnormal resting EKG. 2) Chest pain and throat pain develop with pharmaceutical stress. Throat tightness is likely her anginal symptom. 3) Significant infero-lateral EKG changes develop, suggesting ischemia. 4) This patient's cardiac risk: High. 5) Nuclear images were reported separately and showed: Moderate sized perfusion defect of the lateral wall with partial reversal, suggesting mixed infero- lateral ischemia and infarction. IMPRESSION: 1) Abnormal stress test showing coronary ischemia. 2) This patient's cardiac risk: High. RECOMMENDATIONS: 1) Coronary angiography advised and referral to Cardiology. 2) SL NTG should be prescribed for use for anginal symptoms. Throat tightness is likely her anginal symptom. 3) Strongly consider restarting aspirin daily (was stopped due to metrorrhagia) 4) Aggressive risk factor management, quitting smoking, etc.
[2020-09-07] MEDS ORDERED: AMINOPHYLLINE 500 MG/20 ML VIAL IVP ONE (12:17)
--- NOTE | 2020-09-07 14:41 | Nuclear Medicine Report ---
PROCEDURE: Rest and pharmaceutical stress myocardial perfusion SPECT with gated imaging and ejection fraction INDICATIONS: ABNORMAL EKG RADIOPHARMACEUTICAL: 14.6 mCi Tc-99m Myoview IV at rest and 41.05 mCi Tc-99m Myoview IV at peak stre ss. Qlf-arw-nkaeaths was performed. TECHNIQUE: Radiopharmaceutical was injected at peak stress test, and also at rest. SPECT images wer e obtained. SPECT myocardial perfusion images were displayed in short axis, horizontal long axis, an d vertical long axis views. Gated images were reviewed using Auto[employer] software. COMPARISON: None available. FINDINGS: Raw data: There is good myocardial labeling by radiotracer. No significant motion artifacts. Lung- to-heart ratio is 0.43 (normal is less than 0.46 for tetrafosmin tracer). Left ventricle function: Gated images demonstrate normal left ventricle wall thickening. No segment al wall motion abnormality. No transient ischemic dilation; TID is 1.07 (normal less than 1.30). Th e left ventricle resting end-diastolic volume is 47 mL. Left ventricle stress ejection fraction is 8 6%; normal values are above 45%. Myocardial perfusion: Moderate size, basal-mid lateral wall perfusion defect is seen demonstrating p artial reversibility at the inferolateral segment. IMPRESSION: Moderate sized, partially reversible perfusion defect involving the basal-mid lateral my ocardium in keeping with mixed infarct/ischemia. Normal left ventricle ejection stress reaction. PQRS ATTESTATIONS: Measure 322 - Is this imaging test primarily performed on a low-risk surgery patient for preoperative evaluation within 30 days preceding their low-risk non-cardiac surgery? Low-risk surgery is defined as cardiac or myocardial infarction less than 1%, including (but not limited to) endoscopic pr ocedures, superficial procedures, cataract surgery, and excisional breast surgery: Answer: No Measure 323 - Is this imaging test performed primarily for the monitoring of an asymptomatic patient who had percutaneous coronary intervention on the visit date or within 2 years of the visit date? An swer: No Measure 324 - Is this imaging test performed primarily for the initial detection and risk assessment on an asymptomatic, low coronary heart disease patient? Low CHD risk definition = clinicians should consider the maximum number of available patient factors used to estimate risk based on Woodson (A TP III criteria), typically age, gender, diabetes, smoking status, and use of blood pressure medicati on, and integrate age appropriate estimates for missing elements, such as LDL or standard blood press ure. Answer: No Reviewed by: García Zavala MD on 09/07/2020 2:39 PM PDT Approved by: García Zavala MD on 09/07/2020 2:39 PM PDT Station ID: [id number]
== END 2020-09-07 09:07 | disposition home or self-care (01) ==
LOC: DI 09:06
PROVIDERS: ATTEND Physician Assistant Medical
DX: R94.31 Abnormal electrocardiogram [ECG] [EKG] (principal); I25.10 Atherosclerotic heart disease of native coronary artery without angina pectoris
CPT/HCPCS: 78452; 93017; A9500; J2785

== ENCOUNTER 2020-11-01 08:00 | Outpatient (CLI) | payer MEDICARE, OTHER ==
[2020-11-01 11:58] LABS: BILIRUBIN,URINE NEGATIVE (NEGATIVE); GLUCOSE, URINE (UA) 500 mg/dL (NEGATIVE); KETONES,URINE (UA) NEGATIVE (NEGATIVE); LEUKOCYTE ESTERASE, URINE TRACE (NEGATIVE); NITRITE,URINE POSITIVE (NEGATIVE); OCCULT BLOOD,URINE NEGATIVE (NEGATIVE); PH,URINE 5.5 PH (5.0-7.5); PROTEIN,URINE NEGATIVE (NEGATIVE); UROBILINOGEN,URINE 0.2 (NORMAL) E.U./dL (NORMAL)
[2020-11-01 12:04] LABS: BACTERIA,URINE Moderate /HPF (None Seen); CLARITY,URINE CLOUDY (CLEAR); RBC,URINE None Seen /HPF (0-5); SQUAMOUS EPITHELIAL CELL,UR RARE Squamous (<= Few); WBC,URINE >25 /HPF (0-5)
== END 2020-11-01 23:59 | disposition home or self-care (01) ==
LOC: LAB.WCP 08:00
PROVIDERS: ATTEND Physician Assistant Medical
DX: N39.0 Urinary tract infection, site not specified (principal)
CPT/HCPCS: 81001; 87086; 87181

== ENCOUNTER 2020-12-04 09:50 | Outpatient (CLI) | payer MEDICARE, OTHER ==
[2020-12-04 12:32] LABS: BASOPHILS # (AUTO) 0.1 10^3/uL (0.0-0.1); BASOPHILS % (AUTO) 0.8 %; EOSINOPHILS # (AUTO) 0.2 10^3/uL (0.0-0.7); EOSINOPHILS % (AUTO) 2.6 %; HCT - HEMATOCRIT 48.9 % (37.0-47.0); HGB - HEMOGLOBIN 16.2 g/dL (12.0-16.0); LYMPHOCYTES % (AUTO) 30.2 %; MEAN CORPUSCULAR HGB CONC 33.1 g/dL (32.0-36.0); MEAN CORPUSCULAR VOLUME 96.4 fL (81.0-99.0); MEAN PLATELET VOLUME 10.8 fL (7.9-10.8); MONOCYTES # (AUTO) 0.7 10^3/uL (0.0-1.0); MONOCYTES % (AUTO) 10.4 %; NEUTROPHILS # (AUTO) 3.6 10^3/uL (1.5-6.6); NEUTROPHILS % (AUTO) 55.7 %; PLT - PLATELET COUNT 177 10^3/uL (130-450); PT - PROTHROMBIN TIME 11.1 secs (9.9-12.6); RED BLOOD COUNT 5.07 10^6/uL (4.20-5.40); RED CELL DISTRIBUTION WIDTH 14.4 % (12.0-15.0); WHITE BLOOD COUNT 6.5 x10^3/uL (4.8-10.8)
[2020-12-04 12:49] LABS: BUN - BLOOD UREA NITROGEN 15 mg/dL (6-20); CALCIUM 9.2 mg/dL (8.5-10.3); CARBON DIOXIDE - CO2 28 mmol/L (21-32); CHLORIDE 99 mmol/L (101-111); CHOL/HDL RATIO 8.3 (<4.4); CHOLESTEROL 241 mg/dL; CREATININE 0.6 mg/dL (0.4-1.0); GFR - MDRD 98 (>89); GLUCOSE 162 mg/dL (70-100); HDL CHOLESTEROL 29 mg/dL; LDL CHOLESTEROL,CALCULATED 149 mg/dL; LDL/HDL RATIO 5.1 (<4.4); POTASSIUM 4.4 mmol/L (3.5-5.0); SODIUM 138 mmol/L (135-145); TRIGLYCERIDES 316 mg/dL; VLDL CHOLESTEROL 63 mg/dL
== END 2020-12-04 09:51 | disposition home or self-care (01) ==
LOC: LAB.N 09:50
DX: R07.9 Chest pain, unspecified (principal); R94.39 Abnormal result of other cardiovascular function study; E78.5 Hyperlipidemia, unspecified
CPT/HCPCS: 36415; 80048; 80061; 83721; 85025; 85610

== ENCOUNTER 2021-03-19 08:00 | Outpatient (CLI) | payer MEDICARE, OTHER ==
[2021-03-19 21:04] LABS: CREATININE,URINE 35.7 mg/dL
[2021-03-19 21:16] LABS: ALBUMIN 4.3 g/dL (3.2-5.5); ALBUMIN/GLOBULIN RATIO 1.7 (1.0-2.2); ALKALINE PHOSPHATASE 54 IU/L (42-121); ALT ALANINE AMINOTRANSFERASE 27 IU/L (10-60); AST ASPARTATE AMINOTRANSFERASE 21 IU/L (10-42); BILIRUBIN,TOTAL 0.5 mg/dL (0.2-1.0); BUN - BLOOD UREA NITROGEN 15 mg/dL (6-20); CALCIUM 9.5 mg/dL (8.5-10.3); CARBON DIOXIDE - CO2 27 mmol/L (21-32); CHLORIDE 104 mmol/L (101-111); CHOL/HDL RATIO 6.4 (<4.4); CHOLESTEROL 198 mg/dL; CREATININE 0.5 mg/dL (0.4-1.0); GFR - MDRD 121 (>89); GLUCOSE 224 mg/dL (70-100); HDL CHOLESTEROL 31 mg/dL; POTASSIUM 4.8 mmol/L (3.5-5.0); SODIUM 143 mmol/L (135-145); TOTAL PROTEIN 6.9 g/dL (6.7-8.2); TRIGLYCERIDES 638 mg/dL
[2021-03-19 23:23] LABS: LDL CHOLESTEROL,DIRECT 99 mg/dL; LDLD/HDL RATIO 3.2 (<4.4)
[2021-03-20 00:23] LABS: ESTIMATED AVERAGE GLUCOSE 171 mg/dL (70-100); HEMOGLOBIN A1c% 7.6 % (4.27-6.07)
== END 2021-03-19 23:59 ==
LOC: LAB 08:00
PROVIDERS: ATTEND Physician Assistant Medical
DX: E11.9 Type 2 diabetes mellitus without complications (principal)
CPT/HCPCS: 36415; 80053; 80061; 82043; 82570; 83036; 83721

== ENCOUNTER 2021-03-19 12:00 | Outpatient (CLI) | payer MEDICARE, OTHER | END 2021-03-19 12:01 | disposition home or self-care (01) | LOC: LAB.N 12:00 | PROVIDERS: ATTEND Physician Assistant Medical | DX: Z53.9 Procedure and treatment not carried out, unspecified reason (principal) ==

== ENCOUNTER 2021-07-04 15:24 | Outpatient (CLI) | payer MEDICARE, OTHER ==
[2021-07-04 18:08] LABS: ALBUMIN/GLOBULIN RATIO 1.4 (1.0-2.2); BILIRUBIN,TOTAL 0.4 mg/dL (0.2-1.0); CALCIUM 8.9 mg/dL (8.5-10.3); CREATININE 0.5 mg/dL (0.4-1.0); POTASSIUM 4.2 mmol/L (3.5-5.0); TOTAL PROTEIN 6.9 g/dL (6.7-8.2)
[2021-07-04 18:21] LABS: HCT - HEMATOCRIT 47.2 % (37.0-47.0); HGB - HEMOGLOBIN 15.8 g/dL (12.0-16.0); MEAN CORPUSCULAR HGB CONC 33.5 g/dL (32.0-36.0); MEAN CORPUSCULAR VOLUME 92.7 fL (81.0-99.0); MEAN PLATELET VOLUME 10.2 fL (7.9-10.8); RED BLOOD COUNT 5.09 10^6/uL (4.20-5.40); RED CELL DISTRIBUTION WIDTH 14.6 % (12.0-15.0); WHITE BLOOD COUNT 7.3 x10^3/uL (4.8-10.8)
--- NOTE | 2021-07-05 09:32 | Ultrasound Report ---
PROCEDURE: Pelvic w/Transvaginal INDICATIONS: POSTMENOPAUSAL BLEEDING TECHNIQUE: Real-time scanning was performed of the pelvic organs, with image documentation. Additional endovagi nal scanning was necessary due to incomplete visualization of the adnexal and endometrial structures by transabdominal scanning. COMPARISON: 01/10/2019 FINDINGS: Limited scanning through the kidneys shows no hydronephrosis. No pathologic free abdominal or pelvic fluid. Uterus: Uterus is anteverted, anteflexed, and normal in size at 7.4 x 2.5 x 3.6 cm. Myometrium is sl ightly heterogeneous. In the right fundus, there are 2 hyperechoic foci separate from the endometrial stripe measuring 5 mm and 8 mm. The echogenic endometrial contour is quite irregular. The endometriu m measures between 8 and 11 mm in combined thickness. There are a few small nabothian cysts in the c ervix. Color Doppler imaging demonstrates slightly increased vascularity to the myometrium. Ovaries: The right ovary measures 2.1 x 1.6 x 1.3 cm for a volume of 2.3 cc. The left ovary measures 2.4 x 1.4 x 2.1 cm for a volume of 3.7 cc. A few punctate echogenic reflectors are present within th e left ovary. The right demonstrates a normal echotexture without dominant follicle. Other: No free pelvic fluid. IMPRESSION: 1. Thickened and slightly irregular endometrial contour, particularly for postmenopausal female. This has progressed since the prior study. Tissue sampling is recommended. 2. There are 2 stable echogenic foci in the right lower uterine segment, possibly chronic calcified f ibroids. 3. Normal ovaries. Reviewed by: Megan Correia MD on 07/05/2021 9:31 AM PDT Approved by: Megan Correia MD on 07/05/2021 9:31 AM PDT Station ID: [id number]
== END 2021-07-04 15:25 | disposition home or self-care (01) ==
LOC: DI 15:24
PROVIDERS: ATTEND Obstetrics & Gynecology
DX: R93.89 Abnormal findings on diagnostic imaging of other specified body structures (principal); N85.9 Noninflammatory disorder of uterus, unspecified; N95.0 Postmenopausal bleeding; C54.1 Malignant neoplasm of endometrium; Z01.818 Encounter for other preprocedural examination
CPT/HCPCS: 36415; 80053; 81599; 85027; 93005

== ENCOUNTER 2021-07-04 15:26 | Outpatient (CLI) | payer MEDICARE, OTHER | END 2021-07-04 15:27 | disposition home or self-care (01) | LOC: RT 15:26 | PROVIDERS: ATTEND Obstetrics & Gynecology Gynecologic Oncology | DX: Z01.818 Encounter for other preprocedural examination (principal); E11.8 Type 2 diabetes mellitus with unspecified complications; C54.1 Malignant neoplasm of endometrium; R93.89 Abnormal findings on diagnostic imaging of other specified body structures; N85.9 Noninflammatory disorder of uterus, unspecified; N95.0 Postmenopausal bleeding | CPT/HCPCS: 36415; 80053; 81599; 83036; 85027; 93005 ==

== ENCOUNTER 2021-10-05 17:36 | Outpatient (CLI) | payer MEDICARE, OTHER ==
[2021-10-05 21:27] LABS: CALCIUM 9.3 mg/dL (8.5-10.3); CREATININE 0.5 mg/dL (0.4-1.0); POTASSIUM 4.3 mmol/L (3.5-5.0)
[2021-10-06 20:45] LABS: ESTIMATED AVERAGE GLUCOSE 186 mg/dL (70-100); HEMOGLOBIN A1c% 8.1 % (4.27-6.07)
== END 2021-10-05 17:37 | disposition home or self-care (01) ==
LOC: LAB.N 17:36
PROVIDERS: ATTEND Physician Assistant Medical
DX: E11.9 Type 2 diabetes mellitus without complications (principal)
CPT/HCPCS: 36415; 80048; 83036

== ENCOUNTER 2021-12-22 08:00 | Outpatient (CLI) | payer MEDICARE, OTHER | END 2021-12-22 23:59 | disposition home or self-care (01) | LOC: LAB.N 08:00 | PROVIDERS: ATTEND Physician Assistant Medical | DX: N30.00 Acute cystitis without hematuria (principal) | CPT/HCPCS: 87086; 87181 ==

== ENCOUNTER 2022-03-02 14:44 | Outpatient (CLI) | payer MEDICARE, OTHER ==
[2022-03-02 18:57] LABS: BASOPHILS # (AUTO) 0.1 10^3/uL (0.0-0.1); EOSINOPHILS # (AUTO) 0.1 10^3/uL (0.0-0.7); EOSINOPHILS % (AUTO) 2.1 %; HCT - HEMATOCRIT 50.9 % (37.0-47.0); LYMPHOCYTES # (AUTO) 1.6 10^3/uL (1.5-3.5); LYMPHOCYTES % (AUTO) 26.6 %; MEAN CORPUSCULAR HEMOGLOBIN 30.4 pg (27.0-31.0); MEAN CORPUSCULAR HGB CONC 31.4 g/dL (32.0-36.0); MEAN CORPUSCULAR VOLUME 96.8 fL (81.0-99.0); MEAN PLATELET VOLUME 10.6 fL (7.9-10.8); MONOCYTES # (AUTO) 0.6 10^3/uL (0.0-1.0); MONOCYTES % (AUTO) 10.1 %; NEUTROPHILS # (AUTO) 3.7 10^3/uL (1.5-6.6); NEUTROPHILS % (AUTO) 59.9 %; PLT - PLATELET COUNT 155 10^3/uL (130-450); RED BLOOD COUNT 5.26 10^6/uL (4.20-5.40); RED CELL DISTRIBUTION WIDTH 14.8 % (12.0-15.0); WHITE BLOOD COUNT 6.1 x10^3/uL (4.8-10.8)
[2022-03-02 19:31] LABS: ALBUMIN/GLOBULIN RATIO 1.5 (1.0-2.2); ALKALINE PHOSPHATASE 61 IU/L (42-121); ALT ALANINE AMINOTRANSFERASE 14 IU/L (10-60); AST ASPARTATE AMINOTRANSFERASE 13 IU/L (10-42); BILIRUBIN,TOTAL 0.6 mg/dL (0.2-1.0); BUN - BLOOD UREA NITROGEN 24 mg/dL (6-20); CALCIUM 9.1 mg/dL (8.5-10.3); CARBON DIOXIDE - CO2 27 mmol/L (21-32); CHLORIDE 103 mmol/L (101-111); CHOL/HDL RATIO 6.4 (<4.4); CHOLESTEROL 191 mg/dL; CREATININE 0.6 mg/dL (0.4-1.0); GFR - MDRD 98 (>89); GLUCOSE 234 mg/dL (70-100); HDL CHOLESTEROL 30 mg/dL; POTASSIUM 4.5 mmol/L (3.5-5.0); SODIUM 139 mmol/L (135-145); TOTAL PROTEIN 6.7 g/dL (6.7-8.2); TRIGLYCERIDES 480 mg/dL
[2022-03-02 20:09] LABS: LDL CHOLESTEROL,DIRECT 98 mg/dL; LDLD/HDL RATIO 3.3 (<4.4)
[2022-03-02 21:10] LABS: ESTIMATED AVERAGE GLUCOSE 169 mg/dL (70-100); HEMOGLOBIN A1c% 7.5 % (4.27-6.07)
== END 2022-03-02 14:45 | disposition home or self-care (01) ==
LOC: LAB.N 14:44
PROVIDERS: ATTEND Physician Assistant Medical
DX: E11.9 Type 2 diabetes mellitus without complications (principal); D75.1 Secondary polycythemia
CPT/HCPCS: 36415; 80053; 80061; 83036; 83721; 85025

== ENCOUNTER 2022-09-18 16:03 | Outpatient (CLI) | payer MEDICARE, OTHER ==
[2022-09-18 17:46] LABS: CALCIUM 8.9 mg/dL (8.5-10.3); CREATININE 0.5 mg/dL (0.4-1.0); POTASSIUM 3.9 mmol/L (3.5-5.0)
[2022-09-18 21:06] LABS: ESTIMATED AVERAGE GLUCOSE 166 mg/dL (70-100); HEMOGLOBIN A1c% 7.4 % (4.27-6.07)
== END 2022-09-18 16:04 | disposition home or self-care (01) ==
LOC: LAB.N 16:03
PROVIDERS: ATTEND Physician Assistant Medical
DX: E11.9 Type 2 diabetes mellitus without complications (principal)
CPT/HCPCS: 36415; 80048; 83036

== ENCOUNTER 2023-04-08 15:18 | Outpatient (CLI) | payer MEDICARE, OTHER ==
[2023-04-08 17:56] LABS: ALBUMIN 3.9 g/dL (3.2-5.5); ALBUMIN/GLOBULIN RATIO 1.5 (1.0-2.2); ALKALINE PHOSPHATASE 62 IU/L (42-121); ALT ALANINE AMINOTRANSFERASE 19 IU/L (10-60); AST ASPARTATE AMINOTRANSFERASE 17 IU/L (10-42); BILIRUBIN,TOTAL 0.5 mg/dL (0.2-1.0); BUN - BLOOD UREA NITROGEN 17 mg/dL (6-20); CALCIUM 9.1 mg/dL (8.5-10.3); CARBON DIOXIDE - CO2 29 mmol/L (21-32); CHLORIDE 105 mmol/L (101-111); CHOL/HDL RATIO 5.7 (<4.4); CHOLESTEROL 170 mg/dL; CREATININE 0.5 mg/dL (0.6-1.3); GFR - MDRD 121 (>89); GLUCOSE 192 mg/dL (74-104); HDL CHOLESTEROL 30 mg/dL; POTASSIUM 4.2 mmol/L (3.5-4.5); SODIUM 139 mmol/L (135-145); TOTAL PROTEIN 6.5 g/dL (6.4-8.9); TRIGLYCERIDES 482 mg/dL (48-352)
[2023-04-08 19:23] LABS: LDL CHOLESTEROL,DIRECT 107 mg/dL (75-193); LDLD/HDL RATIO 3.6 (<4.4)
[2023-04-08 23:19] LABS: ESTIMATED AVERAGE GLUCOSE 146 mg/dL (70-100); HEMOGLOBIN A1c% 6.7 % (4.27-6.07)
== END 2023-04-08 15:19 | disposition home or self-care (01) ==
LOC: LAB.N 15:18
PROVIDERS: ATTEND Physician Assistant Medical
DX: E11.9 Type 2 diabetes mellitus without complications (principal)
CPT/HCPCS: 36415; 80053; 80061; 83036; 83721

== ENCOUNTER 2023-10-17 14:11 | Outpatient (CLI) | payer MEDICARE, OTHER ==
[2023-10-17 18:22] LABS: ALBUMIN 4.2 g/dL (3.2-5.5); ALBUMIN/GLOBULIN RATIO 1.8 (1.0-2.2); ALKALINE PHOSPHATASE 50 IU/L (42-121); ALT ALANINE AMINOTRANSFERASE 17 IU/L (10-60); AST ASPARTATE AMINOTRANSFERASE 13 IU/L (10-42); BILIRUBIN,TOTAL 0.6 mg/dL (0.2-1.0); BUN - BLOOD UREA NITROGEN 23 mg/dL (6-20); CALCIUM 9.8 mg/dL (8.5-10.3); CARBON DIOXIDE - CO2 25 mmol/L (21-32); CHLORIDE 107 mmol/L (101-111); CHOL/HDL RATIO 4.9 (<4.4); CHOLESTEROL 162 mg/dL; CREATININE 0.7 mg/dL (0.6-1.3); GFR - MDRD 82 (>89); GLUCOSE 194 mg/dL (74-104); HDL CHOLESTEROL 33 mg/dL; LDL CHOLESTEROL,CALCULATED 62 mg/dL; LDL/HDL RATIO 1.9 (<4.4); POTASSIUM 4.1 mmol/L (3.5-4.5); SODIUM 139 mmol/L (135-145); TOTAL PROTEIN 6.5 g/dL (6.4-8.9); TRIGLYCERIDES 335 mg/dL; VLDL CHOLESTEROL 67 mg/dL
[2023-10-17 20:06] LABS: ESTIMATED AVERAGE GLUCOSE 134 mg/dL (70-100); HEMOGLOBIN A1c% 6.3 % (4.27-6.07)
== END 2023-10-17 14:12 | disposition home or self-care (01) ==
LOC: LAB.N 14:11
PROVIDERS: ATTEND Physician Assistant Medical
DX: E11.9 Type 2 diabetes mellitus without complications (principal)
CPT/HCPCS: 36415; 80053; 80061; 83036; 83721